=== PATIENT | female | born 1980 | race Caucasian/White ===

== ENCOUNTER 2017-06-17 22:30 | Inpatient (IN) | payer OTHER ==
[~2017-06-17] VITALS: Ht 167.6 cm; Wt 90.3 kg
[~2017-06-17 22:30] MED LIST: NAPROXEN500 MG PO; PERCOCET 5/321 UDTAB PO
[2017-06-17] MEDS ORDERED: WELLBUTRIN SR100 MG (22:49)
== END 2017-06-23 20:13 | disposition home or self-care (01) | DRG 690 ==
LOC: ER 22:30 → MEDI 06-18 06:30
PROC: BW21Y0Z Computerized Tomography (CT Scan) of Abdomen and Pelvis using Other Contrast, Unenhanced and Enhanced (ICD-10-PCS; principal; 2017-06-22)
DX: N39.0 Urinary tract infection, site not specified (principal); B96.4 Proteus (mirabilis) (morganii) as the cause of diseases classified elsewhere; B34.9 Viral infection, unspecified; G89.29 Other chronic pain; R10.2 Pelvic and perineal pain

== ENCOUNTER 2017-09-16 07:42 | Emergency (ER) | payer OTHER ==
[~2017-09-16] VITALS: Ht 167.6 cm; Wt 88.9 kg
[~2017-09-16 07:42] MED LIST changes: +WELLBUTRIN SR100 MG
[2017-09-16] MEDS ORDERED: KETO10TA2 PO (14:39)
[2017-09-16] MEDS ORDERED: NORFLEX100MG PO (14:39)
== END 2017-09-16 14:50 | disposition home or self-care (01) ==
LOC: ER 07:42
DX: B34.9 Viral infection, unspecified (principal); R51 Headache

== ENCOUNTER 2018-11-16 08:20 | Emergency (ER) | payer OTHER ==
[~2018-11-16] VITALS: Ht 167.6 cm; Wt 83.5 kg
[~2018-11-16 08:20] MED LIST changes: +KETO10TA2 PO; +NORFLEX100MG PO
[2018-11-16] MEDS ORDERED: CLONAZEPAM2 M1 (08:50)
== END 2018-11-16 18:53 | disposition home or self-care (01) ==
LOC: ER 08:20
DX: N39.0 Urinary tract infection, site not specified (principal); M54.5 Low back pain